=== PATIENT | male | born 1960 | race Caucasian/White ===

== ENCOUNTER 2020-09-24 19:26 | Emergency (ER) | payer OTHER ==
[2020-09-24] MEDS: HYDROmorphone 1 MG/ML Syringe SUBCUT ONE (19:42)
[2020-09-24] MEDS: Take Home: Acetaminophen/HYDROcodone 325-10 MG, 5 Tab Pack PO ONE (20:17)
--- NOTE | 2020-09-24 20:30 | CR ---
[id number] RAD/RAD Chest PA And Lateral EXAM: RAD Chest PA And Lateral CLINICAL DATA: TRAUMA COMPARISON: NO PREVIOUS SIMILAR EXAM IS AVAILABLE. FINDINGS: The lungs are clear. The cardiomediastinal contour is prominent There is no pneumothorax seen No obvious rib fractures are identified. The regional bones and soft tissues are unremarkable. IMPRESSION: NO ACUTE PROCESS. Chris Worthy MD 09/24/202028 Thank you for allowing us to participate in the care of your patient.
--- NOTE | 2020-09-24 23:39 | EDM.PDOC ---
ED HPI GENERAL MEDICAL PROBLEM - General Chief Complaint: General Stated Complaint: possible rib fracture Time Seen by Provider: 09/24/20 19:31 Source of Information: Reports: Patient History Limitations: Reports: No Limitations - History of Present Illness INITIAL COMMENTS - FREE TEXT/NARRATIVE: Pt. presents to ER with complaints of L anteriolateral chest wall pain. Pt. states that he slipped on the ice while ice fishing. Pt. states that he landed, striking his lateral L ribs on the ice. Denies any shortness of breath. No lightheadedness. No significant shortness of breath. Pt. states that the discomfort is worse with deep breathing. Denies any previous injury to the area. Denies striking head. No abdominal pain. Denies any neck pain. No extremity trauma reported. Onset: Today Location: Reports: Chest Quality: Reports: Sharp Severity: Severe Left Pain Score (Numeric/FACES): 8 - Related Data Allergies Allergy/AdvReac Type Severity Reaction Status Date / Time No Known Allergies Allergy Verified 09/24/20 19:34 Home Meds: Home Meds Aspirin [Children's Aspirin] 81 mg PO DAILY 03/12/14 [History] Past Medical History Cardiovascular History: Reports: MS, Stents - Past Surgical History Cardiovascular Surgical History: Reports: Coronary Artery Stent Social & Family History - Tobacco Use Tobacco Use Status *Q: Never Tobacco User ED ROS GENERAL - Review of Systems Review Of Systems: See Below Constitutional: Reports: No Symptoms. Denies: Fever, Chills, Malaise, Weakness, Fatigue, Diaphoresis HEENT: Reports: No Symptoms Respiratory: Reports: Pleuritic Chest Pain. Denies: Shortness of Breath, Wheezing, Cough, Sputum, Hemoptysis Cardiovascular: Reports: No Symptoms Endocrine: Reports: No Symptoms GI/Abdominal: Reports: No Symptoms : Reports: No Symptoms Musculoskeletal: Reports: No Symptoms Skin: Reports: No Symptoms Neurological: Reports: No Symptoms Psychiatric: Reports: No Symptoms Hematologic/Lymphatic: Reports: No Symptoms Immunologic: Reports: No Symptoms ED EXAM, GENERAL - Physical Exam Exam: See Below Exam Limited By: No Limitations General Appearance: Alert, WD/WN, No Apparent Distress Head: Atraumatic, Normocephalic Respiratory/Chest: No Respiratory Distress, Lungs Clear, Normal Breath Sounds, No Accessory Muscle Use, Chest Non-Tender. No: Decreased Breath Sounds, Pleural Rub Cardiovascular: Normal Peripheral Pulses, Regular Rate, Rhythm, No Edema, No Gallop, No JVD, No Murmur, No Rub Extremities: Normal Inspection, Normal Range of Motion, Non-Tender Skin Exam: Warm, Dry, Intact, Normal Color Course - Vital Signs Last Recorded V/S: Last Vital Signs Temp 36.5 C 09/24/20 19:31 Pulse 82 09/24/20 19:31 Resp 24 H 09/24/20 19:31 BP 190/108 H 09/24/20 19:31 Pulse Ox 98 09/24/20 19:31 - Orders/Labs/Meds Meds: Medications Discontinued Medications Generic Name Dose Route Start Last Admin Trade Name Bautistaq PRN Reason Stop Dose Admin Hydrocodone Bitart/Acetaminophen 2 packet 09/24/20 20:12 09/24/20 20:17 Take Home: Acetaminophen/Hydrocodone 325-10mg PO 09/24/20 20:13 2 packet ONETIME ONE Administration Hydromorphone HCl 1 mg 09/24/20 19:34 09/24/20 19:42 Dilaudid SUBCUT 09/24/20 19:35 1 mg ONETIME ONE Administration - Radiology Interpretation Free Text/Narrative:: Possible fracture to 8th and 9th rib, on my interpretation. Radiologists favors fracture of 9th rib. Departure - Departure Time of Disposition: 21:00 Disposition: Home, Self-Care 01 Clinical Impression: Rib fracture - Discharge Information Instructions: Acetaminophen; Hydrocodone tablets or capsules, Rib Fracture, [id number] Referrals: Nivia Esparza DO [Primary Care Provider] - Forms: ED Department Discharge Additional Instructions: [place] 10/325mg 1 every 4-6 hours as needed for pain. Do not operate machinery while taking this medication. Ibuprofen 200mg 3 tabs every 6-8 hours as needed for pain. You may want to start taking a stool softener, as the norco causes constipation. Hold pillow against chest when coughing. Try to stand up and walk around your house every hour or two do decrease chances of pneumonia. Work on taking deep breaths. Return to ER if you have increased shortness of breath, lightheadedness, feel faint, or sweaty. Sepsis Event Note (ED) - Evaluation Sepsis Screening Result: No Definite Risk - Focused Exam Vital Signs: Vital Signs Temp Pulse Resp BP Pulse Ox 12/19/20 19:31 36.5 C 82 24 H 190/108 H 98 - Problem List Review Problem List Initiated/Reviewed/Updated: Yes - Assessment/Plan Plan: [place] 10/325mg 1 every 4-6 hours as needed for pain. Do not operate machinery while taking this medication. Ibuprofen 200mg 3 tabs every 6-8 hours as needed for pain. You may want to start taking a stool softener, as the norco causes constipation. Hold pillow against chest when coughing. Try to stand up and walk around your house every hour or two do decrease chances of pneumonia. Work on taking deep breaths. Return to ER if you have increased shortness of breath, lightheadedness, feel faint, or sweaty.
== END 2020-09-24 20:33 | disposition home or self-care (01) ==
LOC: VM.ED 19:26
DX: S22.42XA Multiple fractures of ribs, left side, initial encounter for closed fracture (principal); I25.2 Old myocardial infarction; Z95.5 Presence of coronary angioplasty implant and graft; Z79.82 Long term (current) use of aspirin; W00.0XXA Fall on same level due to ice and snow, initial encounter
CPT/HCPCS: 71046; 96372; 99283; 99283-25; A9270-GY; J1170

== ENCOUNTER 2021-07-19 08:32 | Emergency (ER) | payer OTHER ==
[2021-07-19 09:15] LABS: PTT,PARTIAL THROMBOPLSTIN TIME 23.4 SEC (25.6-32.8)
--- NOTE | 2021-07-19 09:17 | CT ---
[id number] CT/CT Head Stroke Protocol EXAM: CT Head Stroke Protocol CLINICAL DATA: STROKE CODE. COMPARISON STUDY: None FINDINGS: No intracranial hemorrhage, extra-axial fluid collection, mass, or acute ischemia. Generalized parenchymal atrophy with scattered areas of nonspecific white matter disease, commonly seen as sequela of chronic microvascular ischemia. Soft tissues are unremarkable. Moderate paranasal sinus disease. IMPRESSION: No acute intracranial findings. Jose Martin Gonzales DO 07/19/21 0916 Thank you for allowing us to participate in the care of your patient.
[2021-07-19 09:19] LABS: CHLORIDE,CL 105 mmol/L (98-107); SODIUM,NA 140 mmol/L (136-145)
[2021-07-19 09:20] LABS: ANION GAP 16.3 mmol/L (5-15)
--- NOTE | 2021-07-19 09:22 | EDM.PDOC ---
ED HPI GENERAL MEDICAL PROBLEM - General Stated Complaint: POSS STROKE Time Seen by Provider: 07/19/21 08:40 Source of Information: Reports: Patient History Limitations: Reports: No Limitations - History of Present Illness INITIAL COMMENTS - FREE TEXT/NARRATIVE: Pt. presents to ER with acute onset dysequilibrium/inability to ambulate that started at approx. 0830 this AM. Pt. states that he was working on his computer at the time. He states that the symptoms were severe enough he had to call for help and his workers carried him to the car and brought him to the ER. Pt. had a similar episode last weekend that resolved on its own. Pt. states that today the symptoms are improving but he still has vertigo and is uncoordinated. Pt. has been experiencing double vision/problems with walking/dizziness for the past several weeks, is scheduled for MRI. Pt. was diagnosed with a subacute cerebellar stoke on 07/18/2021. Pt. was started on plavix and was set up to see neurology. Onset: Today - Related Data Allergies Allergy/AdvReac Type Severity Reaction Status Date / Time No Known Allergies Allergy Verified 07/19/21 08:47 Home Meds: Home Meds Aspirin [Aspirin EC] 81 mg PO DAILY 07/19/21 [History] Past Medical History Cardiovascular History: Reports: [place], Stents - Past Surgical History Cardiovascular Surgical History: Reports: Coronary Artery Stent ED ROS GENERAL - Review of Systems Review Of Systems: See Below Constitutional: Reports: No Symptoms HEENT: Reports: No Symptoms Respiratory: Reports: No Symptoms Cardiovascular: Reports: No Symptoms Endocrine: Reports: No Symptoms GI/Abdominal: Reports: No Symptoms : Reports: No Symptoms Musculoskeletal: Reports: No Symptoms Skin: Reports: No Symptoms Neurological: Reports: Difficulty Walking. Denies: Paresthesia, Seizure, Syncope, Tingling, Tremors, Weakness, Change in Speech ED EXAM, GENERAL - Physical Exam Exam: See Below Exam Limited By: No Limitations General Appearance: Alert, WD/WN, No Apparent Distress Eye Exam: Bilateral Eye: EOMI, Normal Fundi, Normal Inspection, PERRL Head: Atraumatic, Normocephalic Neck: Normal Inspection, Supple, Non-Tender, Full Range of Motion Respiratory/Chest: No Respiratory Distress, Lungs Clear, Normal Breath Sounds, No Accessory Muscle Use, Chest Non-Tender Cardiovascular: Normal Peripheral Pulses, Regular Rate, Rhythm, No Edema, No Gallop, No JVD, No Murmur Peripheral Pulses: 4+: Radial (L) GI/Abdominal: Soft, Non-Tender, No Distention, No Mass (Male) Exam: Deferred Rectal (Males) Exam: Deferred Back Exam: Normal Inspection, Full Range of Motion Extremities: Normal Inspection, Normal Range of Motion, Non-Tender, No Pedal Edema, Normal Capillary Refill Neurological: Alert, Oriented, CN II-XII Intact, Normal Cognition, Normal Reflexes, No Motor/Sensory Deficits, Abnormal Gait, Other (NIH scale on arrival to ER was 1 for coordination. Visual fuller normal, but he does have a dark spot in L lateral vision.) Psychiatric: Normal Affect, Normal Mood Skin Exam: Warm Lymphatic: No Adenopathy #1 Interpretation Rhythm: NSR [place]: Normal P-Wave: Present QRS: Normal ST-T: Normal QT: Normal Course - Orders/Labs/Meds Orders: Active Orders 24 hr Category Date Time Status Blood Glucose Check, Bedside [RC] ONETIME Care 07/19/21 08:55 Active EKG Documentation Completion [RC] STAT Care 07/19/21 08:54 Active Labs: Laboratory Tests 07/19/21 07/19/21 07/19/21 Range/Units 08:46 08:50 08:50 WBC 5.6 (4.0-10.0) x10^3/uL RBC 5.26 (4.5-6.0) x10^6/uL Hgb 15.9 (14.0-18.0) g/dL Hct 45.5 (40.0-52.0) % MCV 86.5 (78.0-93.0) fL MCH 30.2 (26.0-32.0) pg MCHC 34.9 (32.0-36.0) g/dL RDW Coeff of Michelle 12.4 (10.0-15.0) % Plt Count 265 (130-400) x10^3/uL Immature Gran % (Auto) 0.20 (0.00-0.43) % Neut % (Auto) 54.3 (50.0-80.0) % Lymph % (Auto) 34.5 (25.0-50.0) % [place] % (Auto) 8.8 (2.0-11.0) % Eos % (Auto) 1.8 (0.0-4.0) % Baso % (Auto) 0.4 (0.2-1.2) % Neut # (Auto) 3.0 (1.8-7.7) x10^3/uL Lymph # (Auto) 1.9 (1.0-4.8) x10^3/uL [place] # (Auto) 0.5 (0.0-0.8) x10^3/uL Eos # (Auto) 0.1 (0.0-0.5) x10^3/uL Baso # (Auto) 0.0 (0.0-0.2) x10^3/uL Immature Gran # (Auto) 0.01 (0.00-0.07) x10^3/uL PT 10.7 (9.9-12.5) SEC INR 1.0 L (2.0-3.5) APTT 23.4 L (25.6-32.8) SEC Sodium (136-145) mmol/L Potassium (3.5-5.1) mmol/L Chloride (98-107) mmol/L Carbon Dioxide (21-32) mmol/L Anion Gap (5-15) mmol/L BUN (7-18) mg/dL Creatinine (0.70-1.30) mg/dL Est Cr Clr Drug Dosing Estimated GFR (MDRD) Glucose (70-99) mg/dL POC Glucose 121 H (70-99) mg/dL Calcium (8.5-10.1) mg/dL Corrected Calcium (8.5-10.1) mg/dL Phosphorus (2.6-4.7) mg/dL Magnesium (1.8-2.4) mg/dL Total Bilirubin (0.2-1.0) mg/dL AST (15-37) U/L ALT (16-63) U/L Alkaline Phosphatase (46-116) U/L Troponin I High Sens (<=76) ng/L C-Reactive Protein (<=0.9) mg/dL Total Protein (6.4-8.2) g/dL Albumin (3.4-5.0) g/dL Globulin Albumin/Globulin Ratio 07/19/21 Range/Units 08:50 WBC (4.0-10.0) x10^3/uL RBC (4.5-6.0) x10^6/uL Hgb (14.0-18.0) g/dL Hct (40.0-52.0) % MCV (78.0-93.0) fL MCH (26.0-32.0) pg MCHC (32.0-36.0) g/dL RDW Coeff of Michelle (10.0-15.0) % Plt Count (130-400) x10^3/uL Immature Gran % (Auto) (0.00-0.43) % Neut % (Auto) (50.0-80.0) % Lymph % (Auto) (25.0-50.0) % [place] % (Auto) (2.0-11.0) % Eos % (Auto) (0.0-4.0) % Baso % (Auto) (0.2-1.2) % Neut # (Auto) (1.8-7.7) x10^3/uL Lymph # (Auto) (1.0-4.8) x10^3/uL [place] # (Auto) (0.0-0.8) x10^3/uL Eos # (Auto) (0.0-0.5) x10^3/uL Baso # (Auto) (0.0-0.2) x10^3/uL Immature Gran # (Auto) (0.00-0.07) x10^3/uL PT (9.9-12.5) SEC INR (2.0-3.5) APTT (25.6-32.8) SEC Sodium 140 (136-145) mmol/L Potassium 4.3 (3.5-5.1) mmol/L Chloride 105 (98-107) mmol/L Carbon Dioxide 23 (21-32) mmol/L Anion Gap 16.3 H (5-15) mmol/L BUN 17 (7-18) mg/dL Creatinine 0.9 (0.70-1.30) mg/dL Est Cr Clr Drug Dosing TNP Estimated GFR (MDRD) > 60 Glucose 117 H (70-99) mg/dL POC Glucose (70-99) mg/dL Calcium 8.6 (8.5-10.1) mg/dL Corrected Calcium 8.6 (8.5-10.1) mg/dL Phosphorus 2.7 (2.6-4.7) mg/dL Magnesium 2.1 (1.8-2.4) mg/dL Total Bilirubin 0.6 (0.2-1.0) mg/dL AST 23 (15-37) U/L ALT 46 (16-63) U/L Alkaline Phosphatase 85 (46-116) U/L Troponin I High Sens 6 (<=76) ng/L C-Reactive Protein < 0.2 (<=0.9) mg/dL Total Protein 7.1 (6.4-8.2) g/dL Albumin 4.0 (3.4-5.0) g/dL Globulin 3.1 Albumin/Globulin Ratio 1.29 - Radiology Interpretation Free Text/Narrative:: CT brain without contrast was negative. Images pushed to [place] first, then [facility]. Departure - Departure Time of Disposition: 10:01 Disposition: Home, Self-Care 01 Clinical Impression: Cerebellar stroke - Discharge Information Referrals: Nivia Esparza DO [Primary Care Provider] - Forms: Interfacility Transfer EMTALA - Problem List Review Problem List Initiated/Reviewed/Updated: Yes - My Orders Last 24 Hours: My Active Orders 07/19/21 08:54 EKG Documentation Completion [RC] STAT 07/19/21 08:55 Blood Glucose Check, Bedside [RC] ONETIME - Assessment/Plan Last 24 Hours: My Active Orders 07/19/21 08:54 EKG Documentation Completion [RC] STAT 07/19/21 08:55 Blood Glucose Check, Bedside [RC] ONETIME Plan: Stroke code called. Pt. examined. NIH/inclusion-exclusion criteria filled out. Initial NIH was 1 off for coordination. Pt. still experiencing vertigo, particularly when sitting upright, but symptoms were less than previous. Initial CT brain without contrast was negative. [place] stroke team contacted (Dr. Rogers) who stated that neuro intervention was no indicated. He advised possibly changing pt. from plavix to to eliquis but stated that he did not need to be transferred to [place]. Contacted [facility] in [place], Dr. Mukherjee, who feels that pt. needs new workup including CTA head and neck as well as MRI as the patient is having new/worsening symptoms. Discussed case with pt. and family. 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 They wish to proceed with transfer. Pt. will be transported via [facility] ground ambulance.
== END 2021-07-19 10:30 | disposition short-term general hospital (02) ==
LOC: VM.ED 08:32
DX: I63.9 Cerebral infarction, unspecified (principal); I25.2 Old myocardial infarction; Z79.82 Long term (current) use of aspirin
CPT/HCPCS: 70450; 80053; 82947; 83735; 84100; 84484; 85025; 85610; 85730; 86140; 93005; 93010; 99284; 99284-25